=== PATIENT | male | born 1990 | race Caucasian/White ===

== ENCOUNTER 2017-04-29 10:46 | Emergency (ER) | payer OTHER ==
[~2017-04-29] VITALS: Ht 167.6 cm; Wt 63.5 kg
--- NOTE | ~2017-04-29 | EKG ---
[place] [address] [facility] [employer] [address] ELECTROCARDIOGRAM REPORT Name: WILLI TYLER Room #: DEP PABLO Ervin#: [id number] Admission: 04/29/17 Attend Phys: Discharge: 04/29/17 Date of : [birth year] Report #: [id number] THIS REPORT FOR: //name// [facility] ED Test Date: 2017-04-29 Test Time: 11:02:36 Pat Name: WILLI TYLER Department: Room: Gender: Diagnostic Tech: : 1990 Requested By: Ehsan Patel Order Number: [id number] MD: Aquiles Spaulding Measurements Intervals [place] Rate: 91 P: 88 WY: 138 QRS: 88 QRSD: 87 T: 17 QT: 363 QTc: 447 Interpretive Statements Sinus rhythm Borderline T wave abnormalities No previous ECG available for comparison Electronically Signed On 04-30-2017 9:41:08 CDT by Aquiles Spaulding [email or web address] <ELECTRONICALLY SIGNED> By: Aquiles Spaulding MD, [facility] 04/30/17 0941 1102 1102 Aquiles Spaulding MD, FACC /EPI
[2017-04-29 11:08] LABS: URINE BILIRUBIN NEGATIVE (Negative); URINE BLOOD TRACE (Negative); URINE COLOR YELLOW; URINE GLUCOSE-RANDOM* NEGATIVE (Negative); URINE KETONES NEGATIVE (Negative); URINE LEUKOCYTES-REFLEX NEGATIVE (Negative); URINE PROTEIN (DIPSTICK) NEGATIVE (Negative); URINE SPECIFIC GRAVITY <= 1.005 (1.003-1.035); URINE UROBILINOGEN 0.2 E.U./dl (0.2-1.0)
[2017-04-29 11:12] LABS: ANION GAP 12 mmol/L (7-16); BUN 9 mg/dL (7-18); CALCIUM 8.3 mg/dL (8.5-10.1); CHLORIDE 104 mmol/L (98-107); CO2 29 mmol/L (21-32); CREATININE 1.1 mg/dL (0.7-1.3); GLUCOSE 108 mg/dL (74-106); POTASSIUM 3.4 mmol/L (3.5-5.1); SODIUM 145 mmol/L (136-145)
[2017-04-29 11:13] LABS: ABSOLUTE NEUTROPHILS 2.6 thou/uL (1.4-8.2); BASOPHILS 1.1 % (0.0-2.0); EOSINOPHILS 2.5 % (0.0-3.0); HEMATOCRIT 45.2 % (42.0-52.0); HEMOGLOBIN 15.9 gm/dL (14.0-18.0); LYMPHOCYTES 42.1 % (24.0-44.0); MANUAL DIFF NO; MCH 28.8 pg (26.0-34.0); MCHC 35.2 g/dL (28.0-37.0); MCV 81.6 fL (80.0-100.0); MONOCYTES 4.7 % (1.0-8.0); PLATELET COUNT 259 thou/uL (150-400); POLYS 49.6 % (36.0-66.0); RBC 5.54 mil/uL (4.50-6.00); RDW 12.8 % (10.5-14.5); WBC 5.3 thou/uL (4.0-11.0)
[2017-04-29 11:16] LABS: AMP/METHAMP Negative (Negative); BARBITURATES Negative (Negative); BENZODIAZEPINES Negative (Negative); COCAINE Negative (Negative); METHADONE Negative (Negative); OPIATES Negative (Negative); PCP Negative (Negative); THC Negative (Negative)
[2017-04-29 11:17] LABS: ALBUMIN 4.1 g/dL (3.4-5.0); ALKALINE PHOSPHATASE 123 U/L (46-116); SALICYLATE < 2.8 mg/dL (2.8-20.0); SGOT 65 U/L (15-37); SGPT 75 U/L (30-65); TOTAL BILIRUBIN 0.4 mg/dL (<0.1-1.0); TOTAL PROTEIN 7.1 g/dL (6.4-8.2)
[2017-04-29 11:18] LABS: ACETAMINOPHEN < 2 ug/mL (10-30)
[2017-04-29 20:45] VITALS: BP 108/80
== END 2017-04-29 20:50 ==
LOC: ER 10:46
PROVIDERS: Emergency Medicine
DX: F10.129 Alcohol abuse with intoxication, unspecified (principal); R45.851 Suicidal ideations; F17.210 Nicotine dependence, cigarettes, uncomplicated